=== PATIENT | male | born 1975 | race Caucasian/White ===

== ENCOUNTER 2017-04-10 13:50 | Emergency (ER) | payer OTHER ==
[2017-04-10 13:56] VITALS: BP 125/74; PULSE 95; RESP 16; TEMP 97.5; O2SAT 94
[2017-04-10] MEDS ORDERED: IBUPROFEN 200 MG TAB PO ONE (14:50)
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
== END 2017-04-10 15:22 | disposition home or self-care (01) ==
DX: S63.501A Unspecified sprain of right wrist, initial encounter (principal); V18.2XXA Unspecified pedal cyclist injured in noncollision transport accident in nontraffic accident, initial encounter
CPT/HCPCS: L3807